=== PATIENT | female | born 1995 | race Two or more races ===

== ENCOUNTER 2017-04-11 04:08 | Emergency (ER) | payer SELFPAY ==
[~2017-04-11] VITALS: Ht 167.6 cm; Wt 83.9 kg
[2017-04-11 04:53] VITALS: BP 130/75
[2017-04-11] MEDS ORDERED: BENZ100C PO (05:43)
[2017-04-11] MEDS ORDERED: PRED50TA PO (05:43)
[2017-04-11] MEDS ORDERED: PROAIR HFA8.5 GM INH (05:43)
[2017-04-11] MEDS ORDERED: AZIT250T6 PO (05:43)
--- NOTE | 2017-04-11 05:44 | PHYS DOC ---
Past Medical History Past Medical History: No Pertinent History Past Surgical History: Other Additional Past Surgical Histo: [place] teeth extraction Alcohol Use: None Drug Use: None Adult General Chief Complaint Chief Complaint: Congestion HPI HPI 21-year-old female presenting with 2 weeks of cough without fever. She has a productive cough which is white mucousy phlegm. She denies nausea vomiting chest pain abdominal pain. Location lungs. Duration intermittent. No alleviating factors. Review of systems is negative for chest pain abdominal pain nausea vomiting. All other review of systems is negative unless otherwise noted in history of present illness. ED course: 21-year-old female visiting with a productive cough. Afebrile here with normal heart rate. Blood. Otherwise. X-ray shows mild radio opacification in the right lower region which cannot rule out infiltrate. Patient given oral antibiotics coughing medication and other symptomatic medications. Follow-up with in 2-3 days. The patient was then discharged home in stable condition to follow up with their primary care physician over the next 2-3 days. They were to return if their symptoms worsened or if they were concerned for any reason. [id number] discharge instructions and return precautions were given. Patient's questions were answered to their satisfaction. Patient is comfortable plan. Review of Systems Review of Systems SEE ABOVE. Allergies Allergies Allergies Coded Allergies Type Severity Reaction Last Updated Verified No Known Drug Allergies 04/24/15 No Physical Exam Physical Exam SEE ABOVE Constitutional: Well developed, well nourished, no acute distress, non-toxic appearance. [] HENT: Normocephalic, atraumatic, bilateral external ears normal, oropharynx moist, no oral exudates, nose normal. [] Eyes: PERRLA, EOMI, conjunctiva normal, no discharge. [] Neck: Normal range of motion, no tenderness, supple, no stridor. [] Cardiovascular:Heart rate regular rhythm, no murmur [] Lungs & Thorax: Bilateral breath sounds clear to auscultation [] Abdomen: Bowel sounds normal, soft, no tenderness, no masses, no pulsatile masses. [] Skin: Warm, dry, no erythema, no rash. [] Back: No tenderness, no CVA tenderness. [] Extremities: No tenderness, no cyanosis, no clubbing, ROM intact, no edema. [] Neurologic: Alert and oriented X 3, normal motor function, normal sensory function, no focal deficits noted. [] Psychologic: Affect normal, judgement normal, mood normal. [] Current Patient Data Vital Signs Vital Signs Date Time Temp Pulse Resp B/P (MAP) Pulse Ox O2 Delivery O2 Flow Rate FiO2 04/11/17 04:53 98.4 74 20 99 Room Air 98.4 EKG EKG [] Radiology/Procedures Radiology/Procedures [] Course & Med Decision Making Course & Med Decision Making Pertinent Labs and Imaging studies reviewed. (See chart for details) [] Dragon Disclaimer Dragon Disclaimer This electronic medical record was generated, in whole or in part, using a voice recognition dictation system. Departure Departure Impression: Primary Impression: Bronchitis Disposition: HOME, SELF-CARE Condition: STABLE Referrals: NO PCP (PCP) Patient Instructions: Acute Bronchitis Additional Instructions: Thank you for allowing us to participate in your care today. Followup with your primary care physician in 3 days if your symptoms do not improve. Call your Primary Doctor tomorrow and inform them of your visit today. If you do not have a primary care provider you can ask for a list of our primary care providers. Return to the emergency department you have any new or concerning findings. This should be evaluated by the primary care physician and any necessary consulting services for continued management within a few days after discharge. Return to emergency room if you have any new or concerning symptoms including but not limited to fever, chills, nausea, vomiting, intractable pain, any new rashes, chest pain, shortness of air, uncontrolled bleeding, difficulty breathing, and/or vision loss. Scripts Albuterol Sulfate (PROAIR HFA INHALER) 8.5 Gm Hfa.aer.ad 1 PUFF INH PRN Q6HRS Y for SHORTNESS OF BREATH, #1 INHALER 0 Refills Prov: BEBETO RAMOS MD 04/11/17 Benzonatate (TESSALON PERLE) 100 Mg Capsule 1 CAP PO TID, #15 CAP Prov: BEBETO RAMOS MD 04/11/17 Azithromycin (AZITHROMYCIN TABLET) 250 Mg Tablet 1 PKG PO UD, #6 TAB Prov: BEBETO RAMOS MD 04/11/17 BEBETO RAMOS MD Apr 11, 2017 05:44
--- NOTE | 2017-04-11 07:57 | RAD ---
CHEST PA LATERAL Clinical Indication: cough Comparison: Chest radiograph dated 04/24/2015 Findings: Low lung volume. No focal consolidation. Normal pulmonary vasculature. No pleural effusion or pneumothorax. The cardiomediastinal silhouette and great vessels are normal. No acute osseous abnormality. IMPRESSION: No acute cardiopulmonary process.
== END 2017-04-11 05:55 | disposition home or self-care (01) ==
LOC: ER 04:08
DX: J40 Bronchitis, not specified as acute or chronic (principal)
CPT/HCPCS: 71020; 99284